=== PATIENT | male | born 2000 | race Caucasian/White ===

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

== ENCOUNTER 2021-09-11 18:59 | Observation (INO) ==
[2021-09-11] MEDS ORDERED: SODIUM CHLORIDE 1,000 ML IV STA ×4 (19:15→20:10)
--- NOTE | 2021-09-11 19:22 | ED.PDOC ---
General ED Provider: Dr. SHARONDA ALEXIS Chief Complaint: Non-specific Complaint Stated Complaint: Pt presents with muscle cramping. 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 Denies any F/C/N/V/CP/AP/SOB. Nothing else makes the sxs better or worse and they are mild in nature. Time Seen by Provider: 09/11/21 19:32 Mode of Arrival: Walk-In Information Source: Patient Primary Care Provider: SHAHIDA BUSTOS MD Nursing and Triage Documentation Reviewed and Agree: Yes Does patient meet sepsis criteria?: No If yes, has appropriate treatment been initiated?: No System Inflammatory Response Syndrome: Not Applicable Sepsis Protocol: For patient's 13 years and over: Temp is 96.8 and below OR 101 and greater Pulse >90 BPM Resp >20/minute Acutely Altered Mental Status Are patient's symptoms suggestive of a new infection, such as: -Pneumonia -Skin, Soft Tissue -Endocarditis -UTI -Bone, Joint Infection -Implantable Device -Acute Abdominal Infection -Wound Infection -Meningitis -Blood Stream Catheter Infection -Unknown Review of Systems Review Of Systems Constitutional: Reports No symptoms Eyes: Reports No symptoms Ears, Nose, Mouth, Throat: Reports No symptoms Respiratory: Reports No symptoms Cardiac: Reports No symptoms GI: Reports No symptoms : Reports No symptoms Musculoskeletal: Reports Muscle pain (and cramping) Skin: Reports No symptoms Neurological: Reports No symptoms Endocrine: Reports No symptoms Hematologic/Lymphatic: Reports No symptoms All Other Systems: Reviewed and Negative [facility] Medical History Anxiety Atrial fibrillation Family history of hypertension Hypertension Moderate anxiety Mood disorder Obesity Panic attack Severe depression Family History Grandfather/Grandmother Diabetes Heart disease Hypertension Grandfather/Grandmother Heart disease Hypertension FATHER Hypertension Social History Smoking and tobacco status: Never smoker Alcohol intake: never Substance use type: does not use Andressa/church: RELIGIOUS Foster care: No Household members: family Marital status: S SINGLE Daycare: no daycare Highest education level completed: 11th grade service: No assisted: No Current occupational status: employed 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 Do you think of yourself as: straight/heterosexual Current gender identity: male Water heater temperature set < 120 degrees: Yes Working smoke detector in home: Yes Fire extinguisher in home: Yes Carbon monoxide detector in home: Yes Physical Exam Physical Exam Appearance: Reports Well-appearing, No pain distress and Well-nourished Ill-appearing: None Pain Distress: None Eyes: Reports ALBA, EOMI and Conjunctiva clear ENT: Reports Not Examined Neck: Supple Respiratory: Reports Airway patent, Breath sounds clear, Breath sounds equal and Respirations nonlabored Cardiovascular: Reports RRR, Pulses normal, No rub and No murmur GI/: Reports Soft, Nontender, No masses, Bowel sounds normal and No Organomegaly Musculoskeletal: Reports Normal strength, ROM intact, No edema, No calf tenderness and Other (mild muscular TTP in legs and arms) Skin: Reports Warm, Dry and Normal color Neurological: Reports Sensation intact, Motor intact, Reflexes intact, Cranial nerves intact, Alert and Oriented Psychiatric: Reports Affect appropriate and Mood appropriate Critical Care Note Critical Care Note Total Critical Care Time (mins): 0 Course Course Hematology/Chemistry: 09/11/21 19:25 09/11/21 19:25 Orders, Labs, Meds: Lab Review 09/11/21 09/11/21 19:25 19:25 WBC 12.18 H RBC 4.84 Hgb 14.0 Hct 40.1 L MCV 82.9 MCH 28.9 MCHC 34.9 RDW Coeff of Vanessa 12.6 Plt Count 398 Immature Gran % (Auto) 0.8 Neut % (Auto) 72.9 Lymph % (Auto) 17.4 [place] % (Auto) 7.8 Eos % (Auto) 0.7 Baso % (Auto) 0.4 Neut # (Auto) 8.9 H Lymph # (Auto) 2.1 [place] # (Auto) 1.0 Eos # (Auto) 0.1 Baso # (Auto) 0.1 Immature Gran # (Auto) 0.1 Sodium 136.4 Potassium 3.49 L Chloride 96.5 L Carbon Dioxide 26.9 Anion Gap 16.49 BUN 34.0 H Creatinine 3.20 H Estimated GFR (MDRD) 25.00 BUN/Creatinine Ratio 10.62 Glucose 111.7 H Calcium 9.63 Magnesium 2.48 H Total Bilirubin 0.97 AST 34.1 ALT 20.0 Alkaline Phosphatase 89.2 Total Creatine Kinase 329.5 H CK-MB (CK-2) 0.811 CK-MB (CK-2) % 0.2400 Total Protein 8.75 H Albumin 4.97 Globulin 3.78 Albumin/Globulin Ratio 1.31 Orders Category Date Time Status ADMIT OBSERVATION [PLACE PATIENT OBSERVATION] .TO ADMISSION 09/11/21 20:07 Active MEDSURG (NON-MONITORED BED) CBC W/ AUTO DIFF DAILY@0600 LAB 09/12/21 06:00 Ordered CBC W/ AUTO DIFF DAILY@0600 LAB 09/13/21 06:00 Ordered CBC W/ AUTO DIFF Stat LAB 09/11/21 19:25 Completed CMP [COMPREHENSIVE METABOLIC PANEL] DAILY@0600 LAB 09/12/21 06:00 Ordered CMP [COMPREHENSIVE METABOLIC PANEL] DAILY@0600 LAB 09/13/21 06:00 Ordered COMPREHENSIVE METABOLIC PANEL Stat LAB 09/11/21 19:25 Completed CREATINE KINASE Stat LAB 09/11/21 19:25 Completed MAGNESIUM Stat LAB 09/11/21 19:25 Completed Sodium Chloride 0.9% [Sodium Chloride] 1,000 ml MEDS 09/11/21 20:07 Active IV 250 mls/hr Sodium Chloride 0.9% [Sodium Chloride] 1,000 ml MEDS 09/11/21 19:15 Active IV BOLUS Sodium Chloride 0.9% [Sodium Chloride] 1,000 ml MEDS 09/11/21 20:02 Active IV BOLUS Sodium Chloride 0.9% [Sodium Chloride] 1,000 ml MEDS 09/11/21 20:10 Active IV BOLUS Medications Generic Name Dose Route Start Last Admin Trade Name Freq PRN Reason Stop Dose Admin Sodium Chloride 1,000 mls @ 1,000 mls/hr 09/11/21 19:15 09/11/21 19:34 Sodium Chloride IV 09/11/21 20:14 1,000 mls/hr BOLUS STA Administration Sodium Chloride 1,000 mls @ 1,000 mls/hr 09/11/21 20:02 Sodium Chloride IV 09/11/21 21:01 BOLUS STA Sodium Chloride 1,000 mls @ 250 mls/hr 09/11/21 20:07 Sodium Chloride IV 09/12/21 00:06 .Q4H STA Sodium Chloride 1,000 mls @ 1,000 mls/hr 09/11/21 20:10 Sodium Chloride IV 09/11/21 21:09 BOLUS STA Vital Signs: Temp Pulse Resp BP Pulse Ox 09/11/21 19:20 85 72/43 L 09/11/21 19:19 74 85/48 L 09/11/21 19:01 96.7 F L 82 20 92/60 98 Discharge Plan Discharge Patient Disposition: PLACED OBSERVATION Discharge Problem: Acute kidney injury, Acute dehydration, Muscle spasm ED Provider: SHARONDA ALEXIS Condition: Stable Physician Progress Note: I have reviewed pt results. CBC shows a WBC of 12.2. Chems show a Cr of 3.2 with a CK of 330. His pressure has been soft in the 90 systolic range. At this point, I suspect the sxs are secondary dehydration. Given his borderline BP and elevated Cr, I think he should be admitted for IV hydration. Pt will be admitted in stable condition.
[2021-09-11 19:32] LABS: BASOPHILS # (AUTO) 0.1 K/uL (0-0.2); BASOPHILS % (AUTO) 0.4 % (0.0-3.0); EOSINOPHILS # (AUTO) 0.1 K/ul (0.0-0.7); EOSINOPHILS % (AUTO) 0.7 % (0.0-7.0); HEMATOCRIT 40.1 % (42.0-52.0); IMMATURE GRANULOCYTE # (AUTO) 0.1 (0.0-1.0); IMMATURE GRANULOCYTE % (AUTO) 0.8 % (0.0-5.0); LYMPHOCYTES # (AUTO) 2.1 K/uL (0.60-3.4); LYMPHOCYTES % (AUTO) 17.4 (10.0-50.0); MEAN CORPUSCULAR HEMOGLOBIN 28.9 pg (27.0-31.0); MEAN CORPUSCULAR HGB CONC 34.9 (31.8-35.4); MEAN CORPUSCULAR VOLUME 82.9 fl (80.0-94.0); MONOCYTES % (AUTO) 7.8 (0-10); NEUTROPHILS # (AUTO) 8.9 K/ul (2.0-6.9); NEUTROPHILS % (AUTO) 72.9 % (42.2-75.2); PLATELET COUNT 398 10^3/uL (140-440); RDW COEFFICIENT OF VARIATION 12.6 % (11.6-14.8); RED BLOOD COUNT 4.84 10^6/ul (4.70-6.10); WHITE BLOOD COUNT 12.18 K/ul (4.2-10.2)
[2021-09-11 19:43] LABS: ALBUMIN 4.97 g/dL (3.5-5.0); ALKALINE PHOSPHATASE 89.2 U/L (38-126); ASPARTATE AMINO TRANSFERASE 34.1 U/L (17-59); BILIRUBIN,TOTAL 0.97 mg/dL (0.2-1.3); CALCIUM 9.63 mg/dL (8.4-10.2); CARBON DIOXIDE 26.9 mmol/L (22-30.0); CHLORIDE 96.5 mmol/L (98-107); CREATINE KINASE 329.5 U/L (55-170); CREATININE 3.2 mg/dL (0.60-1.10); GLUCOSE 111.7 mg/dL (74-106); MAGNESIUM 2.48 mg/dL (1.6-2.3); POTASSIUM 3.49 mmol/L (3.5-5.1); SODIUM 136.4 mmol/L (134.5-145); TOTAL PROTEIN 8.75 g/dL (6.3-8.2)
[2021-09-11 19:58] LABS: CREATINE KINASE MB 0.811 ng/ml (0.0-2.38)
[2021-09-11 22:08] VITALS: BMI 37.3
[2021-09-12] MEDS: SODIUM CHLORIDE 1,000 ML IV SCH ×5 (00:18→18:05)
[2021-09-12 05:01] LABS: BASOPHILS % (AUTO) 0.5 % (0.0-3.0); EOSINOPHILS # (AUTO) 0.1 K/ul (0.0-0.7); EOSINOPHILS % (AUTO) 1.5 % (0.0-7.0); HEMATOCRIT 33.8 % (42.0-52.0); HEMOGLOBIN 11.5 g/dl (14.0-18.0); IMMATURE GRANULOCYTE # (AUTO) 0.1 (0.0-1.0); IMMATURE GRANULOCYTE % (AUTO) 0.8 % (0.0-5.0); LYMPHOCYTES # (AUTO) 2.3 K/uL (0.60-3.4); LYMPHOCYTES % (AUTO) 35.7 (10.0-50.0); MEAN CORPUSCULAR HEMOGLOBIN 28.8 pg (27.0-31.0); MEAN CORPUSCULAR VOLUME 84.7 fl (80.0-94.0); MONOCYTES # (AUTO) 0.6 K/uL (0.4-2.0); MONOCYTES % (AUTO) 9.4 (0-10); NEUTROPHILS # (AUTO) 3.4 K/ul (2.0-6.9); NEUTROPHILS % (AUTO) 52.1 % (42.2-75.2); PLATELET COUNT 281 10^3/uL (140-440); RDW COEFFICIENT OF VARIATION 12.7 % (11.6-14.8); RED BLOOD COUNT 3.99 10^6/ul (4.70-6.10); WHITE BLOOD COUNT 6.49 K/ul (4.2-10.2)
[2021-09-12 05:12] LABS: ALANINE AMINOTRANSFERASE 14.6 U/L (0-50); ALBUMIN 3.48 g/dL (3.5-5.0); ALKALINE PHOSPHATASE 64.8 U/L (38-126); ASPARTATE AMINO TRANSFERASE 26.8 U/L (17-59); BILIRUBIN,TOTAL 0.48 mg/dL (0.2-1.3); BLOOD UREA NITROGEN 28.4 mg/dL (9-20); CALCIUM 8.22 mg/dL (8.4-10.2); CARBON DIOXIDE 24.7 mmol/L (22-30.0); CHLORIDE 106.6 mmol/L (98-107); CREATININE 1.73 mg/dL (0.60-1.10); GLUCOSE 91.9 mg/dL (74-106); POTASSIUM 3.87 mmol/L (3.5-5.1); SODIUM 137.4 mmol/L (134.5-145); TOTAL PROTEIN 6.32 g/dL (6.3-8.2)
--- NOTE | 2021-09-12 10:43 | PCM.PROG ---
Date Seen by Provider: 09/12/21 Time Seen by Provider: 10:00 Subjective: No new complaints. No overnight issues. Denies Nsaid use, black or bloody stools. 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 Thurs he was prescribed guanfacine 1mg for insomnia by his clinician and took it thurs nite. He said his mother gave him one tuesday morning. On 4 meds that treat hypertension which he has a hx of . Deneis any symptoms Objective: Vitals: T=96.9 F, P=72, R=16, BP=91/52, TPE7=099 HEENT: [No icterus, speech normal ] Neck: [no pain, FROM] Lungs: [CTAB no dyspnea ] CVS: [SB no murmur , no chest pain ] Abdomen: [ Non tender , no distention , soft ] Extremities: [FROM ] Neurological: [alert oriented x3 ] Skin: [no rash ] Lab/Tests/Diagnostic Imaging: [ bun down to 28.4/ cret down to 1.7, hgb 11.5 ck 329,Ca 8.22,] Plan: 1. Low hemoglobin - likely from administration of 4 liters of saline. Will check Stool for blood and trend H &H 2. Hx cannibis use- will check tox screen for substances causing adverse reactions with his meds 3. For low ( asymptomatic BP - Orthostatic BP 4.Hx of Afib- EKG 5.TATE - UA 6 Low Serum calcium - corrected for low albumin - 8.6 7. TATE -IV NS @ 150ml/hr 8.Mild elevation CPK - trend 8I&O
[2021-09-12 11:44] LABS: BASOPHILS % (AUTO) 0.6 % (0.0-3.0); EOSINOPHILS # (AUTO) 0.1 K/ul (0.0-0.7); EOSINOPHILS % (AUTO) 1.6 % (0.0-7.0); HEMATOCRIT 34.5 % (42.0-52.0); HEMOGLOBIN 11.5 g/dl (14.0-18.0); IMMATURE GRANULOCYTE % (AUTO) 0.6 % (0.0-5.0); LYMPHOCYTES # (AUTO) 1.4 K/uL (0.60-3.4); LYMPHOCYTES % (AUTO) 26.6 (10.0-50.0); MEAN CORPUSCULAR HEMOGLOBIN 28.4 pg (27.0-31.0); MEAN CORPUSCULAR HGB CONC 33.3 (31.8-35.4); MEAN CORPUSCULAR VOLUME 85.2 fl (80.0-94.0); MONOCYTES # (AUTO) 0.5 K/uL (0.4-2.0); MONOCYTES % (AUTO) 10.5 (0-10); NEUTROPHILS # (AUTO) 3.1 K/ul (2.0-6.9); NEUTROPHILS % (AUTO) 60.1 % (42.2-75.2); PLATELET COUNT 299 10^3/uL (140-440); RDW COEFFICIENT OF VARIATION 12.7 % (11.6-14.8); RED BLOOD COUNT 4.05 10^6/ul (4.70-6.10); WHITE BLOOD COUNT 5.16 K/ul (4.2-10.2)
[2021-09-12 11:45] LABS: ALBUMIN 3.89 g/dL (3.5-5.0); ALKALINE PHOSPHATASE 64.7 U/L (38-126); ASPARTATE AMINO TRANSFERASE 36.3 U/L (17-59); BILIRUBIN,TOTAL 0.62 mg/dL (0.2-1.3); BLOOD UREA NITROGEN 23.5 mg/dL (9-20); CALCIUM 8.56 mg/dL (8.4-10.2); CHLORIDE 108.2 mmol/L (98-107); CREATINE KINASE 306.4 U/L (55-170); CREATININE 1.34 mg/dL (0.60-1.10); GLUCOSE 89.6 mg/dL (74-106); POTASSIUM 3.71 mmol/L (3.5-5.1); SODIUM 138.9 mmol/L (134.5-145); TOTAL PROTEIN 6.79 g/dL (6.3-8.2)
[2021-09-12 12:02] LABS: CREATINE KINASE MB 0.773 ng/ml (0.0-2.38)
[2021-09-12 12:02] LABS: OCCULT BLOOD SAMPLE 1 NEGATIVE (NEGATIVE)
[2021-09-12 12:41] LABS: AMPHETAMINE SCREEN,URINE NEGATIVE (NEGATIVE); BARBITURATE SCREEN,URINE NEGATIVE (NEGATIVE); BENZODIAZEPINES SCREEN,URINE NEGATIVE (NEGATIVE); CANNABINOID SCREEN,URINE NEGATIVE (NEGATIVE); COCAIN SCREEN,URINE NEGATIVE (NEGATIVE); METHADONE URINE SCREEN NEGATIVE (NEGATIVE); METHAMPHETAMINES SCREEN,URINE NEGATIVE (NEGATIVE); OPIATE SCREEN,URINE NEGATIVE (NEGATIVE); OXYCODONE URINE SCREEN NEGATIVE (NEGATIVE); PHENCYCLIDINE SCREEN,URINE NEGATIVE (NEGATIVE); PROPOXYPHENE URINE SCREEN NEGATIVE (NEGATIVE); TRICYCLIC ANTIDEPRESSANTS URIN NEGATIVE (NEGATIVE)
[2021-09-12 12:55] LABS: BILIRUBIN,URINE Negative (NEGATIVE); CLARITY,URINE Clear (CLEAR); COLOR,URINE Yellow (YELLOW); GLUCOSE, URINE (UA) Negative (NEGATIVE); KETONES,URINE Negative (NEGATIVE); LEUKOCYTE ESTERASE ,URINE Negative (NEGATIVE); NITRITE,URINE Negative (NEGATIVE); PH,URINE 5.5 (5-9); PROTEIN,URINE Negative (NEGATIVE); URINE, BLOOD Negative (NEGATIVE); UROBILINOGEN,URINE 0.2 (0.2)
[2021-09-12 15:03] LABS: CREATINE KINASE 288.4 U/L (55-170)
[2021-09-12 15:19] LABS: CREATINE KINASE MB 0.749 ng/ml (0.0-2.38)
[2021-09-13 00:23] LABS: OCCULT BLOOD SAMPLE 2 NO SPECIMEN RECEIVED (NEGATIVE); OCCULT BLOOD SAMPLE 3 NO SPECIMEN RECEIVED (NEGATIVE)
[2021-09-13] MEDS: SODIUM CHLORIDE 1,000 ML IV SCH ×2 (00:37→07:13)
[2021-09-13 05:03] LABS: BASOPHILS % (AUTO) 0.5 % (0.0-3.0); EOSINOPHILS # (AUTO) 0.1 K/ul (0.0-0.7); EOSINOPHILS % (AUTO) 1.7 % (0.0-7.0); HEMATOCRIT 32.5 % (42.0-52.0); IMMATURE GRANULOCYTE % (AUTO) 0.5 % (0.0-5.0); LYMPHOCYTES # (AUTO) 2.4 K/uL (0.60-3.4); LYMPHOCYTES % (AUTO) 39.3 (10.0-50.0); MEAN CORPUSCULAR HEMOGLOBIN 28.6 pg (27.0-31.0); MEAN CORPUSCULAR HGB CONC 33.8 (31.8-35.4); MEAN CORPUSCULAR VOLUME 84.6 fl (80.0-94.0); MONOCYTES # (AUTO) 0.6 K/uL (0.4-2.0); MONOCYTES % (AUTO) 9.1 (0-10); NEUTROPHILS % (AUTO) 48.9 % (42.2-75.2); PLATELET COUNT 284 10^3/uL (140-440); RDW COEFFICIENT OF VARIATION 12.4 % (11.6-14.8); RED BLOOD COUNT 3.84 10^6/ul (4.70-6.10); WHITE BLOOD COUNT 6.03 K/ul (4.2-10.2)
[2021-09-13 05:19] LABS: ALANINE AMINOTRANSFERASE 13.8 U/L (0-50); ALBUMIN 3.33 g/dL (3.5-5.0); ALKALINE PHOSPHATASE 64.4 U/L (38-126); ASPARTATE AMINO TRANSFERASE 24.9 U/L (17-59); BILIRUBIN,TOTAL 0.27 mg/dL (0.2-1.3); BLOOD UREA NITROGEN 11.9 mg/dL (9-20); CALCIUM 8.42 mg/dL (8.4-10.2); CARBON DIOXIDE 25.8 mmol/L (22-30.0); CHLORIDE 109.3 mmol/L (98-107); CREATININE 0.94 mg/dL (0.60-1.10); GLUCOSE 111.7 mg/dL (74-106); POTASSIUM 3.42 mmol/L (3.5-5.1); SODIUM 139.4 mmol/L (134.5-145); TOTAL PROTEIN 6.07 g/dL (6.3-8.2)
[2021-09-13 10:08] VITALS: BP 98/59; TEMP 97
--- NOTE | 2021-09-13 11:02 | PCM.DC ---
Final Diagnosis: dehydration, renal insufficiency Physical Exam Appearance: Well-appearing Ill-appearing: None Pain Distress: None Eyes: Conjunctiva clear ENT: Oropharynx normal Neck: Supple Respiratory: Airway patent Cardiovascular: RRR GI/: Other (nondistended) Musculoskeletal: ROM intact Skin: Normal color Neurological: Alert and Oriented Psychiatric: Affect appropriate Reason for Hospitalization: dehydration Prognosis/Condition at Discharge: good Medications at Discharge: Ambulatory Orders Medication Instructions Recorded amitriptyline 10 mg tablet See Rx Instructions .ROUTE 07/07/21 .COMPLEX #90 tab aspirin 81 mg tablet,delayed See Rx Instructions .ROUTE 07/07/21 release .COMPLEX #30 tab cetirizine 10 mg tablet 10 mg PO QDAY #90 tab 07/07/21 hydrochlorothiazide 25 mg tablet 25 mg PO QAM #90 tab 07/07/21 lisinopril 40 mg tablet 40 mg PO QDAY #90 tab 07/23/21 guanfacine 1 mg tablet,extended 1 mg PO DAILY 09/11/21 release 24 hr metoprolol succinate 50 mg 50 mg PO BID 09/11/21 tablet,extended release 24 hr Lab/Diagnostics: bun (28) and electronic gluer (1.7) have both returned to normal range Education Provided to Patient and Family: rest, oral fluids Follow-ups: see your doctor or Dr Yun Discharge Disposition: Home Hospital Course: pt not dizzy or cramping, labs normalized, pt wants to be discharged Plan: oral fluids, rest, see your doctor
== END 2021-09-13 11:03 | disposition home or self-care (01) ==
LOC: MEDSURG A 18:59 → ED 18:59 → MEDSURG A 21:45
PROVIDERS: ADMIT Emergency Medicine; ATTEND Emergency Medicine Emergency Medical Services
DX: M62.81 Muscle weakness (generalized); Z79.899 Other long term (current) drug therapy; Z74.3 Need for continuous supervision; M62.838 Other muscle spasm; E86.0 Dehydration; R94.4 Abnormal results of kidney function studies; N17.9 Acute kidney failure, unspecified; Z51.81 Encounter for therapeutic drug level monitoring; R42 Dizziness and giddiness; N28.9 Disorder of kidney and ureter, unspecified

== ENCOUNTER 2024-11-22 10:45 | Observation (INO) ==
[2024-11-22 11:13] LABS: IMMATURE GRANULOCYTE # (AUTO) 0.1 (0.0-1.0); IMMATURE GRANULOCYTE % (AUTO) 0.5 % (0.0-5.0); RDW COEFFICIENT OF VARIATION 12.6 % (11.6-14.8)
--- NOTE | 2024-11-22 11:13 | ED.PDOC ---
General HPI ED Provider: Dr. LICO MEDLEY MD Chief Complaint: Chest Pain Stated Complaint: Pt presents with feeling like his heart is beating fast. Started when he woke up this morning around 9am. Reports associated lightheadedness and nausea when he moves around. Feels like he cannot take a deep breath. Denies chest pain. States he had some nausea and sweating yesterday and vomited once, but did not have palpitations yesterday. Pt states he has h/o HTN and afib in past. Takes HCTZ and lisinopril but no blood thinners or rate control meds. Denies alcohol use. Reports daily marijuana use, no other drugs. States he drinks tea and water and denies additional caffeine or stimulants. No recent cough or fever. Time Seen by Provider: 11/22/24 10:46 Mode of Arrival: Walk-In Information Source: Patient Exam Limitations: No limitations Primary Care Provider: SHAHIDA BUSTOS MD Nursing and Triage Documentation Reviewed and Agree: Yes Opioid Naive vs. Tolerant What is Opioid Naive?: *Opioid Naive implies the patient is not already taking opioids or not chronically receiving opioids on a daily basis. *PRN dosing is not "usually" associated with tolerance. *Patients are at higher risk of over-sedation and aspiration. What is Opioid Tolerant?: *Opioid Tolerance implies less than the expected response to an opioid. *Acquired tolerance is defined by the patient taking 60mg of oral morphine daily (or equianalgesic dose of another opioid) for 1 week or more. *Often associated with chronic pain. *May take more than usual dose to achieve desired pain control. Review of Systems Review Of Systems Constitutional: Reports No symptoms PFSH PFS Medical History Dehydration E86.0 - Dehydration (ICD-10) Mood disorder F39 - Unspecified mood [affective] disorder (ICD-10) Moderate anxiety F41.9 - Anxiety disorder, unspecified (ICD-10) Severe depression F32.2 - Major depressive disorder, single episode, severe without psychotic features (ICD-10) Panic attack F41.0 - Panic disorder [episodic paroxysmal anxiety] (ICD-10) Anxiety F41.9 - Anxiety disorder, unspecified (ICD-10) Atrial fibrillation I48.91 - Unspecified atrial fibrillation (ICD-10) Family History Grandfather/Grandmother Diabetes Heart disease Hypertension Grandfather/Grandmother Heart disease Hypertension FATHER Hypertension Social History Smoking and tobacco status: Never smoker Alcohol intake: never Substance use type: does not use Andressa/buddhist: PENTECOSTAL Foster care: No Household members: family Marital status: S SINGLE Daycare: no daycare Highest education level completed: 11th grade service: No residential: No Current occupational status: employed 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 Do you think of yourself as: straight/heterosexual Current gender identity: male Water heater temperature set < 120 degrees: Yes Working smoke detector in home: Yes Fire extinguisher in home: Yes Carbon monoxide detector in home: Yes Physical Exam Physical Exam Appearance: Reports Well-appearing and Well-nourished Ill-appearing: None Pain Distress: None Eyes: Reports Conjunctiva clear ENT: Reports Oropharynx normal Neck: Supple Respiratory: Reports Airway patent, Breath sounds clear, Breath sounds equal and Respirations nonlabored Cardiovascular: Reports Irregular rhythm and Tachycardia GI/: Reports Soft and Nontender Musculoskeletal: Reports Normal strength Skin: Reports Warm and Dry Neurological: Reports Alert and Oriented Psychiatric: Reports Affect appropriate Interpretation EKG Interpretation EKG Interpretation By: ED Physician Time of EKG #1: 10:51 Rate: Tachy Rhythm: Other (afib) Ectopy: None [place]: [place] ST Segment: Normal Re-Evaluation Re-Evaluation Time of Re-Evaluation: 11:57 Status: Improved Additional Comments: Pt was given IV lopressor and rate has improved to 80s-low 90s but he remains in afib. He states he feels a little better with improved rate. Discussed lab and CXR results with him - normal hgb, electrolytes, renal function, TSH. CXR negative. Plan to consult hospitalist for admission for further rate and rhythm control. Physician Notification Case Discussed Physician Notified: Bret Gonzalez hospitalist [employer] Time of Notification: 11:57 Comments: Agrees with admission. Course Course 11/22/24 10:55 11/22/24 10:55 Orders, Labs, Meds: Lab Review 11/22/24 10:55 WBC 9.33 RBC 5.32 Hgb 15.3 Hct 46.1 MCV 86.7 MCH 28.8 MCHC 33.2 RDW Coeff of Vanessa 12.6 Plt Count 360 Immature Gran % (Auto) 0.5 Neut % (Auto) 62.7 Lymph % (Auto) 26.3 [place] % (Auto) 8.5 Eos % (Auto) 1.5 Baso % (Auto) 0.5 Neut # (Auto) 5.9 Lymph # (Auto) 2.5 [place] # (Auto) 0.8 Eos # (Auto) 0.1 Baso # (Auto) 0.1 Immature Gran # (Auto) 0.1 Sodium 140.7 Potassium 3.92 Chloride 101.9 Carbon Dioxide 25.7 Anion Gap 17.02 BUN 15.9 Creatinine 0.80 Estimated GFR (MDRD) 120.00 BUN/Creatinine Ratio 19.87 Glucose 109.7 H Calcium 9.68 Magnesium 1.98 Total Bilirubin 0.59 AST 36.7 ALT 20.5 Alkaline Phosphatase 99.7 Total Protein 8.52 H Albumin 4.60 Globulin 3.92 Albumin/Globulin Ratio 1.17 TSH 2.990 Orders Category Date Time Status EKG-(ED ONLY) Stat CARDIO 11/22/24 10:51 Completed PULSE OX [CONTINUOUS PULSE OX (NURSING)] PULSEOX CARE 11/22/24 11:08 Active Physician Anesthesiologist [ED RAILWAY TRACK PLANT OPERATOR APPLIED] .ONCE EMERGENCY 11/22/24 11:08 Active IV [ED IV/MEDIPORT/POWERPORT] .ONCE EMERGENCY 11/22/24 11:08 Active CBC W/ AUTO DIFF Stat LAB 11/22/24 10:55 Completed CMP [COMPREHENSIVE METABOLIC PANEL] Stat LAB 11/22/24 10:55 Completed DRUG SCREEN (RAPID FOR ED) [DRUG SCREEN, URINE, RAPID] LAB 11/22/24 11:56 Uncollected Stat MAGNESIUM Stat LAB 11/22/24 10:55 Completed TSH [THYROID STIMULATING HORMONE] Stat LAB 11/22/24 10:55 Completed 0.9 % Sodium Chloride [Saline Flush] Meds 11/22/24 11:08 Ordered 1 syr IVF PRN PRN Metoprolol Tartrate [Lopressor] Meds 11/22/24 11:08 Discontinued 5 mg IVP ONCE STA Ondansetron HCl/Pf [Zofran Sdv] Meds 11/22/24 11:08 Discontinued 4 mg IVP ONCE STA Sodium Chloride 0.9% [Sodium Chloride] 500 ml Meds 11/22/24 11:09 Active IV BOLUS CXR [CHEST, 1V AP ONLY] Stat RADS 11/22/24 11:08 Completed Medications Generic Name Dose Route Start Last Admin Trade Name Freq PRN Reason Stop Dose Admin Sodium Chloride 500 mls @ 500 mls/hr 11/22/24 11:09 11/22/24 11:18 Sodium Chloride IV 11/22/24 12:08 500 mls/hr BOLUS ONE Administration Sodium Chloride 1 syr 11/22/24 11:08 0.9% Sodium Chloride 10 Ml Disp.Syrin IVF PRN PRN To flush IV Discontinued Medications Generic Name Dose Route Start Last Admin Trade Name Freq PRN Reason Stop Dose Admin Metoprolol Tartrate 5 mg 11/22/24 11:08 11/22/24 11:18 Metoprolol Tartrate 5 Mg/5 Ml Vial IVP 11/22/24 11:09 5 mg ONCE STA Administration Ondansetron HCl 4 mg 11/22/24 11:08 11/22/24 11:18 Ondansetron Hcl/Pf 4 Mg/2 Ml Sdv IVP 11/22/24 11:09 4 mg ONCE STA Administration Vital Signs: Temp Pulse Resp BP Pulse Ox 11/22/24 10:50 98.2 F 123 H 20 104/84 96 MANJU Risk Score MANJU Risk Score: Risk Score Odds of by 30D 0 0.1 (0.1-0.2) 1 0.3 (0.2-0.3) 2 0.4 (0.3-0.5) 3 0.7 (0.6-0.9) 4 1.2 (1.0-1.5) 5 2.2 (1.9-2.6) 6 3.0 (2.5-3.6) 7 4.8 (3.8-6.1) Discharge Plan Discharge Patient Disposition: PLACED OBSERVATION Discharge Problem: Atrial fibrillation with rapid ventricular response Did you review [place] BIOPHARMACEUTICAL REP for ALL controlled substances?: Not Applicable ED Provider: LICO MEDLEY Condition: Stable
[2024-11-22] MEDS: LOPRESSOR IVP STA (11:18)
[2024-11-22] MEDS: SODIUM CHLORIDE 500 ML IV ONE (11:18)
[2024-11-22] MEDS: ZOFRAN SDV IVP STA (11:18)
[2024-11-22 11:20] LABS: CREATININE 0.8 mg/dL (0.60-1.10)
--- NOTE | 2024-11-22 11:26 | DI ---
EXAM: CHEST FRONTAL VIEW HISTORY: Cough COMPARISON: 01/09/2023 FINDINGS: Heart size and mediastinum remain within normal limits. Lungs are free of infiltrate. No consolidation or pleural fluid. No suspicious pulmonary opacities or nodules. There is no pneumothorax or acute bony finding. IMPRESSION: No acute cardiopulmonary process.
[2024-11-22] MEDS ORDERED: TYLENOL PO PRN (12:01)
[2024-11-22 13:39] LABS: AMPHETAMINE SCREEN,URINE NEGATIVE (NEGATIVE); CANNABINOID SCREEN,URINE POSITIVE (NEGATIVE); COCAIN SCREEN,URINE NEGATIVE (NEGATIVE); METHADONE URINE SCREEN NEGATIVE (NEGATIVE); METHAMPHETAMINES SCREEN,URINE NEGATIVE (NEGATIVE); OXYCODONE URINE SCREEN NEGATIVE (NEGATIVE); TRICYCLIC ANTIDEPRESSANTS URIN NEGATIVE (NEGATIVE)
[2024-11-22 13:41] VITALS: BMI 40.6
[2024-11-22] MEDS: LOPRESSOR PO ONE ×2 (13:45→21:46)
[2024-11-22] MEDS: ZOFRAN SDV IVP PRN (14:20)
--- NOTE | 2024-11-22 14:23 | PCM ---
Date of Service Date Seen by Provider: 11/22/24 Time Seen by Provider: 14:00 Admit Day/Time Admission Date: 11/22/24 Admission Time: 12:00 Reason for Admission Chief Complaint: AFIB W/RVR Hospital Provider Hospital Provider: [place] [facility] [place] Primary Care Physician: SHAHIDA BUSTOS MD History of Present Illness History of Present Illness: 24 yo male with pmh of HTN, anxiety, and afib presented to the ER with complaints of palpitations and dizziness. States his symptoms started last night but had improved up until this morning when he got up to get ready for work. Had symptoms of palpitations, dizziness, and nausea that continued to worsen. Denies any chest pain, sob, fever, or other symptoms. Denies any drug use other than marijuana or use of stimulants and caffeine. Patient states around 5 years ago he had his first episode of Afib and was put on metoprolol. Approx. 2 years ago he was struggling with his mental health and stopped taking his medications. Most recently started seeing a PCP at [facility] and was restarted on lisinopril and HCTZ but nothing to control his heart rate. On arrival to the ER, his HR was found to be 123 with Afib RVR on EKG. He was given 1 dose of lopressor 5 mg IVP and HR has stayed in the 80s - continuing to be in Afib. Admitted to med/surg observation. Case Discussed With Case Discussed With: Patient's case was discussed with the ER Physicians, Dr. Alves. [facility] Medical History Dehydration E86.0 - Dehydration (ICD-10) Mood disorder F39 - Unspecified mood [affective] disorder (ICD-10) Moderate anxiety F41.9 - Anxiety disorder, unspecified (ICD-10) Severe depression F32.2 - Major depressive disorder, single episode, severe without psychotic features (ICD-10) Panic attack F41.0 - Panic disorder [episodic paroxysmal anxiety] (ICD-10) Anxiety F41.9 - Anxiety disorder, unspecified (ICD-10) Atrial fibrillation I48.91 - Unspecified atrial fibrillation (ICD-10) Family History Grandfather/Grandmother Diabetes Heart disease Hypertension Grandfather/Grandmother Heart disease Hypertension FATHER Hypertension CVA (cerebral vascular accident) Atrial fibrillation Social History Smoking and tobacco status: Never smoker Alcohol intake: never Substance use type: does not use and marijuana Andressa/mosque: SABIANIST Foster care: No Household members: family Marital status: S SINGLE Daycare: no daycare Highest education level completed: 11th grade service: No longterm: No Current occupational status: employed 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 Do you think of yourself as: straight/heterosexual Current gender identity: male Water heater temperature set < 120 degrees: Yes Working smoke detector in home: Yes Fire extinguisher in home: Yes Carbon monoxide detector in home: Yes Allergies Allergies Allergy/AdvReac Type Severity Reaction Status Date / Time No Known Allergies Allergy Verified 11/22/24 10:51 Current Medications Home Medications Acetaminophen (Acetaminophen 325 Mg Tablet) 650 mg PO Q4H PRN PRN Reason: Mild Pain Hydrochlorothiazide (Hydrochlorothiazide 25 Mg Tablet) 12.5 mg PO DAILY SOFI Lisinopril (Lisinopril 40 Mg Tablet) 40 mg PO DAILY SOFI Ondansetron HCl (Ondansetron Hcl/Pf 4 Mg/2 Ml Sdv) 4 mg IVP Q6H PRN PRN Reason: Nausea / Vomiting Last Admin: 11/22/24 14:20 Dose: 4 mg Sodium Chloride (0.9% Sodium Chloride 10 Ml Disp.Syrin) 1 syr IVF PRN PRN PRN Reason: To flush IV Last Admin: 11/22/24 14:26 Dose: 1 syr Sodium Chloride (0.9% Sodium Chloride 10 Ml Disp.Syrin) 1 syr IVF Q8HR SOFI ergocalciferol (vitamin D2) 1,250 mcg (50,000 unit) capsule 1,250 mcg PO WEEKLY 11/22/24 [History Confirmed 11/22/24] hydrochlorothiazide 12.5 mg capsule 12.5 mg PO DAILY 11/22/24 [History Confirmed 11/22/24] lisinopril 40 mg tablet 40 mg PO DAILY 11/22/24 [History Confirmed 11/22/24] Opioid Naive vs. Tolerant Does Patient Take Opioids?: No Is Patient Opioid Naive?: Yes What is Opioid Naive?: *Opioid Naive implies the patient is not already taking opioids or not chronically receiving opioids on a daily basis. *PRN dosing is not "usually" associated with tolerance. *Patients are at higher risk of over-sedation and aspiration. Is Patient Opioid Tolerant?: No What is Opioid Tolerant?: *Opioid Tolerance implies less than the expected response to an opioid. *Acquired tolerance is defined by the patient taking 60mg of oral morphine daily (or equianalgesic dose of another opioid) for 1 week or more. *Often associated with chronic pain. *May take more than usual dose to achieve desired pain control. Review of Systems Constitutional: Reports No symptoms; Denies Fever Head: Reports Normocephalic Eyes: Reports No symptoms Ears: Reports No symptoms Nose: Reports No symptoms Mouth: Reports No symptoms Throat: Reports No symptoms Cardiovascular: Reports Palpitations; Denies Chest pain Respiratory: Denies Shortness of air Gastrointestinal: Reports Nausea Genitourinary: Reports No Symptoms Musculoskeletal: Reports No symptoms Endocrine: Reports No symptoms Hematology: Reports No symptoms Immunology: Reports No symptoms Neurological: Reports No symptoms Psychiatric: Reports No symptoms Physical examination Most Recent Vital Signs: Most Recent Vital Signs Temperature 97.4 F L 11/22/24 12:57 Temperature Source Temporal Artery Scan 11/22/24 12:57 Temperature Source Infrared 11/22/24 10:50 Pulse Rate 89 11/22/24 12:57 Respiratory Rate 18 11/22/24 12:57 Blood Pressure 104/84 11/22/24 10:50 Blood Pressure Left Arm 133/74 11/22/24 12:57 Blood Pressure Position Sitting 11/22/24 12:57 O2 Sat by Pulse Oximetry 97 11/22/24 14:00 Oxygen Delivery Method Room Air 11/22/24 14:00 Height 5 ft 7 in 11/22/24 12:57 Weight 117.5 kg 11/22/24 12:57 Telemetry Type Remote Telemetry 11/22/24 13:00 Telemetry Monitoring Started 11/22/24 13:00 Irregular Telemetry Rate (Approximate) 80-90 BPM 11/22/24 13:00 EKG QRS Interval 0.07 11/22/24 13:00 Telemetry Strip Reading Atrial flutter/fib with rate 80's 11/22/24 13:00 Pulse Oximetry Type Remote Telemetry 11/22/24 14:00 Pulse Oximetry Monitoring Started 11/22/24 14:00 Appearance: Positive No Apparent Distress and Alert and Oriented x3 Skin: Positive Warm and Good Turgor HEENT: Positive Normocephalic and PERRLA Neck: Positive Supple and Midline Trachea Chest/Lungs: Positive Symmetrical With Equal Breath Sounds, Clear to Auscultation Bilaterally and Good Air Movement all 4 Lung Coe; Negative Rales, Rhonci or Wheezes Heart: Positive Pulses Normal and Irregular Rhythm; Negative Tachycardia or Bracycardia GI/: Positive Soft, Nontender, Bowel Sounds Normal and No Distention Musculoskeletal: Positive Not Examined Extremities: Positive Intact Peripheral Pulses, Stable Joints Without Laxity and Good ROM in All Joints; Negative Edema Neurological: Positive Sensation Intact, Motor intact, Reflexes Intact, Alert, Oriented and Muscle Strength 5/5 in Upper and Lower Extremities Bilaterally Psychiatric: Positive Oriented x4, Appropriate Mood and Appropriate Affect Labs This Visit Labs This Visit: Labs This Visit 11/22/24 11/22/24 10:55 13:00 WBC 9.33 RBC 5.32 Hgb 15.3 Hct 46.1 MCV 86.7 MCH 28.8 MCHC 33.2 RDW Coeff of Vanessa 12.6 Plt Count 360 Immature Gran % (Auto) 0.5 Neut % (Auto) 62.7 Lymph % (Auto) 26.3 [place] % (Auto) 8.5 Eos % (Auto) 1.5 Baso % (Auto) 0.5 Neut # (Auto) 5.9 Lymph # (Auto) 2.5 [place] # (Auto) 0.8 Eos # (Auto) 0.1 Baso # (Auto) 0.1 Immature Gran # (Auto) 0.1 Sodium 140.7 Potassium 3.92 Chloride 101.9 Carbon Dioxide 25.7 Anion Gap 17.02 BUN 15.9 Creatinine 0.80 Estimated GFR (MDRD) 120.00 BUN/Creatinine Ratio 19.87 Glucose 109.7 H Calcium 9.68 Magnesium 1.98 Total Bilirubin 0.59 AST 36.7 ALT 20.5 Alkaline Phosphatase 99.7 Total Protein 8.52 H Albumin 4.60 Globulin 3.92 Albumin/Globulin Ratio 1.17 TSH 2.990 Urine Opiates Screen Negative Ur Oxycodone Screen Negative Urine Methadone Screen Negative Ur Barbiturates Screen Negative U Tricyclic Antidepress Negative Ur Phencyclidine Scrn Negative Ur Amphetamine Screen Negative U Methamphetamines Scrn Negative U Benzodiazepines Scrn Negative Urine Cocaine Screen Negative U Cannabinoids Screen Positive H Imaging Imaging: EXAM: CHEST FRONTAL VIEW HISTORY: Cough COMPARISON: 01/09/2023 FINDINGS: Heart size and mediastinum remain within normal limits. Lungs are free of infiltrate. No consolidation or pleural fluid. No suspicious pulmonary opacities or nodules. There is no pneumothorax or acute bony finding. IMPRESSION: No acute cardiopulmonary process. EKG Interpretation EKG Interpretation: Afib RVR rate of 102 Review Statement Review Statement: I have independently reviewed and interpreted the labs/EKGs/imaging that were ordered by the ER provider. I have reviewed all outside records that are available currently in our EMR including imaging/notes/labs from previous visits. Plan Plan: 1. Atrial Fibrillation with RVR - RVR resolved at this time, IV dose of lopressor given in ER, metoprolol tartrate 12.5 mg PO given once arrived to the floor, will adjust as needed, telemetry, echo ordered 2. HTN - chronic, continue home medications, may have to adjust with addition of lopressor DVT Prophylaxis: Up ad shoaib Time Spent: Greater than 80 minutes spent with patient, 50% of the time spent with this patient was devoted to counseling and coordination of care. [facility] Plannin minutes spent discussing advance care planning. Disposition: Admit to: Med/Surg Observation Full Code Discussed Plan of Care with Dr. Momo Bullock. Medications Medication Orders: Medications Ordered Category Date Time Status 0.9 % Sodium Chloride [Saline Flush] Meds 11/22/24 11:08 Active 1 syr IVF PRN PRN Acetaminophen [Tylenol] Meds 11/22/24 12:01 Active 650 mg PO Q4H PRN Hydrochlorothiazide Meds 11/23/24 09:00 Active 12.5 mg PO DAILY Lisinopril [Zestril] Meds 11/23/24 09:00 Active 40 mg PO DAILY Ondansetron HCl/Pf [Zofran Sdv] Meds 11/22/24 14:07 Active 4 mg IVP Q6H PRN
[2024-11-22] MEDS: MELATONIN PO PRN (21:54)
[2024-11-23 05:14] LABS: IMMATURE GRANULOCYTE # (AUTO) 0.1 (0.0-1.0); IMMATURE GRANULOCYTE % (AUTO) 0.4 % (0.0-5.0); RDW COEFFICIENT OF VARIATION 12.6 % (11.6-14.8)
[2024-11-23 05:29] VITALS: BP 118/91; PULSE 105; RESP 18; TEMP 97.6
[2024-11-23 05:29] LABS: CREATININE 1.03 mg/dL (0.60-1.10)
[2024-11-23] MEDS: TOPROL XL PO SCH (08:01)
[2024-11-23] MEDS: ZESTRIL PO SCH (08:01)
[2024-11-23] MEDS: HYDROCHLOROTHIAZIDE PO SCH (08:01)
--- NOTE | 2024-11-23 09:02 | DCSUM ---
Admission Date Admission Date: 11/22/24 Discharge Date Discharge Date: 11/23/24 Admission Diagnosis Admission Diagnosis: 1. Atrial Fibrillation with RVR - 2. HTN Discharge Diagnosis Discharge Diagnosis: 1. Atrial Fibrillation with RVR - RVR resolved yesterday, Converted this am, Rate controlled with metoprolol 2. HTN - chronic, stable Hospital Provider Hospital Provider: MABLE LYLE, [facility] [place] Physician Primary Care Physician: DARYL RUSSELL Summary of History and Physical Summary of History and Physical: 24 yo male with pmh of HTN, anxiety, and afib presented to the ER with complaints of palpitations and dizziness. States his symptoms started last night but had improved up until this morning when he got up to get ready for work. Had symptoms of palpitations, dizziness, and nausea that continued to worsen. Denies any chest pain, sob, fever, or other symptoms. Denies any drug use other than marijuana or use of stimulants and caffeine. Patient states around 5 years ago he had his first episode of Afib and was put on metoprolol. Approx. 2 years ago he was struggling with his mental health and stopped taking his medications. Most recently started seeing a PCP at [facility] and was restarted on lisinopril and HCTZ but nothing to control his heart rate. On arrival to the ER, his HR was found to be 123 with Afib RVR on EKG. He was given 1 dose of lopressor 5 mg IVP and HR has stayed in the 80s - continuing to be in Afib. Admitted to med/surg observation. Hospital Course Subjective: Afib RVR remained resolved with metoprolol. Upon arrival to the floor, patient was given 12.5 mg of metoprolol tartrate and again at bedtime. Rate continued to remain controlled. Converted back to normal sinus rhythm around 6 am this morning. Rx sent for metoprolol succinate 25 mg daijayro. Chadvasc score of 1 and does not meet criteria for need of anticoagulation. Discussed signs and symptoms to watch for to return to the ER. Unable to complete echo in house during stay due to insurance requirement of precertification. Order sent for outpatient. Referral sent for Cardiology to follow patient for afib. Appearance: Pleasant, No Apparent Distress and Alert HEENT: MMM, Supple and No JVD CVS: No Murmur and No Rubs Abdomen: Soft, Non-Tender and No Distention Respiratory: No Dyspnea Extremities: No Edema Vital Signs: Most Recent Vital Signs Temperature 97.6 F 11/23/24 05:28 Temperature Source Temporal Artery Scan 11/23/24 05:28 Temperature Source Infrared 11/22/24 10:50 Pulse Rate 105 H 11/23/24 05:28 Respiratory Rate 18 11/23/24 05:28 Blood Pressure 118/91 H 11/23/24 05:28 Blood Pressure Mean 100 11/23/24 05:28 Blood Pressure Left Arm 133/74 11/22/24 12:57 Blood Pressure Location Left Arm 11/23/24 05:28 Blood Pressure Position Supine 11/23/24 05:28 O2 Sat by Pulse Oximetry 95 11/23/24 07:00 Oxygen Delivery Method Room Air 11/23/24 08:00 Height 5 ft 7 in 11/22/24 12:57 Weight 117.5 kg 11/22/24 12:57 Telemetry Type Remote Telemetry 11/23/24 07:00 Telemetry Monitoring Continues 11/23/24 07:00 Irregular Telemetry Rate (Approximate) 80-90 BPM 11/23/24 00:53 Telemetry Heart Rate 66 11/23/24 07:00 Telemetry SPO2 95 11/23/24 07:00 EKG RI Interval 0.17 11/23/24 07:00 EKG QRS Interval 0.08 11/23/24 07:00 Telemetry Strip Reading NSR 11/23/24 07:00 Pulse Oximetry Type Remote Telemetry 11/23/24 07:00 Pulse Oximetry Monitoring Continues 11/23/24 07:00 Imaging: EXAM: CHEST FRONTAL VIEW HISTORY: Cough COMPARISON: 01/09/2023 FINDINGS: Heart size and mediastinum remain within normal limits. Lungs are free of infiltrate. No consolidation or pleural fluid. No suspicious pulmonary opacities or nodules. There is no pneumothorax or acute bony finding. IMPRESSION: No acute cardiopulmonary process. Lab Results Last 24 Hours: 11/23/24 11/22/24 11/22/24 05:08 13:00 10:55 WBC 12.45 H 9.33 RBC 5.62 5.32 Hgb 15.9 15.3 Hct 49.1 46.1 MCV 87.4 86.7 MCH 28.3 28.8 MCHC 32.4 33.2 RDW Coeff of Vanessa 12.6 12.6 Plt Count 364 360 Immature Gran % (Auto) 0.4 0.5 Neut % (Auto) 67.5 62.7 Lymph % (Auto) 21.9 26.3 [place] % (Auto) 8.3 8.5 Eos % (Auto) 1.3 1.5 Baso % (Auto) 0.6 0.5 Neut # (Auto) 8.4 H 5.9 Lymph # (Auto) 2.7 2.5 [place] # (Auto) 1.0 0.8 Eos # (Auto) 0.2 0.1 Baso # (Auto) 0.1 0.1 Immature Gran # (Auto) 0.1 0.1 Sodium 140.8 140.7 Potassium 4.35 3.92 Chloride 99.5 101.9 Carbon Dioxide 29.1 25.7 Anion Gap 16.55 17.02 BUN 15.8 15.9 Creatinine 1.03 0.80 Estimated GFR (MDRD) 89.00 120.00 BUN/Creatinine Ratio 15.33 19.87 Glucose 89.1 109.7 H Calcium 9.97 9.68 Magnesium 1.98 Total Bilirubin 1.16 0.59 AST 28.8 36.7 ALT 21.4 20.5 Alkaline Phosphatase 86.7 99.7 Total Protein 8.53 H 8.52 H Albumin 4.73 4.60 Globulin 3.80 3.92 Albumin/Globulin Ratio 1.24 1.17 TSH 2.990 Urine Opiates Screen Negative Ur Oxycodone Screen Negative Urine Methadone Screen Negative Ur Barbiturates Screen Negative U Tricyclic Antidepress Negative Ur Phencyclidine Scrn Negative Ur Amphetamine Screen Negative U Methamphetamines Scrn Negative U Benzodiazepines Scrn Negative Urine Cocaine Screen Negative U Cannabinoids Screen Positive H Discharge Instructions Discharge Planning: Discharge Planning > 40 minutes If patient is discharged with left ventricular systolic dysfunction: no Discharged with a beta antonio? [] If no, why not? [] Discharged with an wendy/arb? [] If no, why not? [] Discharge Medications: Medications at Discharge (Home Meds & RX) ergocalciferol (vitamin D2) 1,250 mcg (50,000 unit) capsule 1,250 mcg PO WEEKLY 11/22/24 hydrochlorothiazide 12.5 mg capsule 12.5 mg PO DAILY 11/22/24 lisinopril 40 mg tablet 40 mg PO DAILY 11/22/24 metoprolol succinate 25 mg tablet,extended release 24 hr (Toprol XL) 25 mg PO DAILY #30 tabs 11/23/24 ondansetron 4 mg disintegrating tablet 4 mg PO Q6H PRN nausea and vomiting #20 tabs 11/23/24 Discharge Plan Discharge Discharge Orders: Discharge Patient (ONCE); Ordered 11/23/24 Ordered By: ARIEL TOM Activity Restrictions/Additional Instructions: You have been scheduled for an outpatient Echocardiogram of your heart on 11/30/24 at 11am at [facility]. Please arrive 15 minutes early. Can call [phone] if you have any questions or need to change you appointment. You have been referred to [facility]. They will be in contact with y ou to initiate care. If you have any questions or need to speak with them, their contact number is [phone]. Instructions: Metoprolol (By mouth), A-fib (Atrial Fibrillation) (DC), Electronic Cigarettes and Your Health (GEN), Transthoracic Echocardiogram (DC) Care Plan Goals: Problem: Cardiac Dysrhythmia Goal: Adequate cardiac output Instructions: Apply oxygen as ordered Medication as ordered Monitor for any changes in rhythm Notify MD of any changes Patient Disposition: HOME SELF-CARE Prescriptions: New metoprolol succinate [Toprol XL] 25 mg Tablet Extended Release 24 Hr 25 mg PO DAILY Qty: 30 0RF ondansetron 4 mg tablet,disintegrating 4 mg PO Q6H PRN (Reason: nausea and vomiting) Qty: 20 0RF Continued hydrochlorothiazide 12.5 mg capsule 12.5 mg PO DAILY ergocalciferol (vitamin D2) 1,250 mcg (50,000 unit) capsule 1,250 mcg PO WEEKLY lisinopril 40 mg tablet 40 mg PO DAILY Did you review [place] COMPLAINT MANAGER for ALL controlled substances?: No Discussed opioids are addictive and Narcan is available by prescription or from pharmacy.: No Condition: Stable Referrals: DARYL RUSSELL [Primary Care Provider, [facility]] - 12/04/24 2:30 pm
== END 2024-11-23 09:45 | disposition home or self-care (01) ==
LOC: MEDSURG B 10:45 → ED 10:45 → MEDSURG B 12:55
PROVIDERS: ADMIT Hospitalist; ATTEND Nurse Practitioner Family
DX: I48.91 Unspecified atrial fibrillation; I10 Essential (primary) hypertension

== ENCOUNTER 2024-11-28 11:47 | Observation (INO) ==
--- NOTE | 2024-11-28 12:42 | ED.PDOC ---
General HPI ED Provider: Dr. SOMMER PATEL MD Chief Complaint: Nausea/Vomiting Stated Complaint: 24 yo WM with HTN for 10 years, transient AFib in 2020 (had seen [facility] group and placed on aspirin) recently admitted for AFib with RVR given beta-antonio and have been having some nausea/vomiting for 4 days. Vomit 1-2x daily, triggered by the smell or taste of food, no diarrhea. No abdominal pain. He is not eating but tolerating a lot of PO liquid. No BRAY, no chest pain. No cough or SOB. ? attributed to new med (Metoprolol). He doesn't smoke cigarettes or alcohol use but uses THC daily. Time Seen by Provider: 11/28/24 12:20 Mode of Arrival: Walk-In Information Source: Patient Exam Limitations: No limitations Primary Care Provider: DARYL RUSSELL Referred to ED by: Other (self) Seen Within Last 72 Hours for Same Complaint By: In-Patient Facility Nursing and Triage Documentation Reviewed and Agree: Yes Opioid Naive vs. Tolerant Does Patient Take Opioids?: No Is Patient Opioid Naive?: Yes What is Opioid Naive?: *Opioid Naive implies the patient is not already taking opioids or not chronically receiving opioids on a daily basis. *PRN dosing is not "usually" associated with tolerance. *Patients are at higher risk of over-sedation and aspiration. What is Opioid Tolerant?: *Opioid Tolerance implies less than the expected response to an opioid. *Acquired tolerance is defined by the patient taking 60mg of oral morphine daily (or equianalgesic dose of another opioid) for 1 week or more. *Often associated with chronic pain. *May take more than usual dose to achieve desired pain control. Review of Systems Review Of Systems Constitutional: Denies Chills, Diaphoresis or Fever Eyes: Reports No symptoms Ears, Nose, Mouth, Throat: Reports No symptoms and Throat swelling Respiratory: Denies Cough or Shortness of Breath Cardiac: Denies Chest pain or Irregular heart rate GI: Reports Nausea and Vomiting; Denies Abdominal pain, Diarrhea or Difficulty swallowing : Reports No symptoms Musculoskeletal: Reports No symptoms Skin: Reports No symptoms Neurological: Reports No symptoms [facility] Medical History Dehydration E86.0 - Dehydration (ICD-10) Mood disorder F39 - Unspecified mood [affective] disorder (ICD-10) Moderate anxiety F41.9 - Anxiety disorder, unspecified (ICD-10) Severe depression F32.2 - Major depressive disorder, single episode, severe without psychotic features (ICD-10) Panic attack F41.0 - Panic disorder [episodic paroxysmal anxiety] (ICD-10) Anxiety F41.9 - Anxiety disorder, unspecified (ICD-10) Atrial fibrillation I48.91 - Unspecified atrial fibrillation (ICD-10) Family History Grandfather/Grandmother Diabetes Heart disease Hypertension Grandfather/Grandmother Heart disease Hypertension FATHER Hypertension CVA (cerebral vascular accident) Atrial fibrillation Social History Smoking and tobacco status: Never smoker Alcohol intake: never Substance use type: does not use and marijuana Andressa/anglican: AMISH Foster care: No Household members: family Marital status: S SINGLE Daycare: no daycare Highest education level completed: 11th grade service: No shelter: No Current occupational status: employed 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 Do you think of yourself as: straight/heterosexual Current gender identity: male Water heater temperature set < 120 degrees: Yes Working smoke detector in home: Yes Fire extinguisher in home: Yes Carbon monoxide detector in home: Yes Physical Exam Physical Exam Appearance: Reports No pain distress and Well-nourished Ill-appearing: Mild Pain Distress: None Eyes: Reports EOMI ENT: Reports Nose normal and Oropharynx normal Neck: Supple Respiratory: Reports Airway patent, Breath sounds clear, Breath sounds equal and Respirations nonlabored Cardiovascular: Reports RRR, Pulses normal, No rub and No murmur GI/: Reports Nontender, No masses and Bowel sounds normal; Denies Tender Musculoskeletal: Reports Normal strength, ROM intact and No edema Skin: Reports Warm, Dry and Normal color Neurological: Reports Sensation intact and Motor intact Psychiatric: Reports Affect appropriate and Mood appropriate Interpretation EKG Interpretation EKG Interpretation By: ED Physician Time of EKG #1: 12:44 Rate: Normal Rhythm: Sinus Ectopy: None [place]: NL ST Segment: Normal Interpretation: Normal EKG Course Course 11/28/24 12:47 11/28/24 12:47 Orders, Labs, Meds: Lab Review 11/28/24 12:47 WBC 9.97 RBC 5.23 Hgb 14.9 Hct 45.7 MCV 87.4 MCH 28.5 MCHC 32.6 RDW Coeff of Vanessa 12.5 Plt Count 372 Immature Gran % (Auto) 0.6 Neut % (Auto) 74.4 Lymph % (Auto) 14.9 [place] % (Auto) 9.1 Eos % (Auto) 0.4 Baso % (Auto) 0.6 Neut # (Auto) 7.4 H Lymph # (Auto) 1.5 [place] # (Auto) 0.9 Eos # (Auto) 0.0 Baso # (Auto) 0.1 Immature Gran # (Auto) 0.1 Sodium 138.6 Potassium 4.01 Chloride 96.2 L Carbon Dioxide 29.5 Anion Gap 16.91 BUN 47.4 H Creatinine 2.56 H Estimated GFR (MDRD) 31.00 BUN/Creatinine Ratio 18.51 Glucose 95.8 Calcium 9.60 Total Bilirubin 1.18 AST 53.6 ALT 19.2 Alkaline Phosphatase 84.9 Total Protein 8.92 H Albumin 4.72 Globulin 4.20 Albumin/Globulin Ratio 1.12 Lipase 30.0 Orders Category Date Time Status EKG-(ED & IP/OBS ONLY) Stat CARDIO 11/28/24 12:34 Completed NPO REMINDER: IMAGING ONCE CARE 11/28/24 12:35 Active TREATMENT ORDER:NURSING ONCE CARE 11/28/24 13:11 Active Saline Lock [ED IV/MEDIPORT/POWERPORT] .ONCE EMERGENCY 11/28/24 12:34 Active CBC W/ AUTO DIFF Stat LAB 11/28/24 12:47 Completed CMP [COMPREHENSIVE METABOLIC PANEL] Stat LAB 11/28/24 12:47 Completed LIPASE Stat LAB 11/28/24 12:47 Completed 0.9 % Sodium Chloride [Saline Flush] Meds 11/28/24 12:34 Active 1 syr IVF PRN PRN Iohexol [Omnipaque 350 mg/ml 100Ml] Meds 11/28/24 12:46 Discontinued 100 ml IVP ONCE ONE Ondansetron HCl/Pf [Zofran Sdv] Meds 11/28/24 12:57 Discontinued 4 mg IVP ONCE ONE Pantoprazole Sodium [Protonix] Meds 11/28/24 12:34 Discontinued 40 mg IVP ONCE ONE Sodium Chloride 0.9% [Sodium Chloride] 500 ml Meds 11/28/24 12:34 Discontinued IV 250 mls/hr CT ABDOMEN/PELVIS W CONTRAST Stat RADS 11/28/24 12:34 Completed Medications Generic Name Dose Route Start Last Admin Trade Name Freq PRN Reason Stop Dose Admin Sodium Chloride 1 syr 11/28/24 12:34 11/28/24 12:45 0.9% Sodium Chloride 10 Ml Disp.Syrin IVF 1 syr PRN PRN Administration To flush IV Discontinued Medications Generic Name Dose Route Start Last Admin Trade Name Freq PRN Reason Stop Dose Admin Sodium Chloride 500 mls @ 250 mls/hr 11/28/24 12:34 11/28/24 14:05 Sodium Chloride IV 11/28/24 14:33 Infused .Q2H ONE Infusion Iohexol 100 ml 11/28/24 12:46 11/28/24 13:49 Iohexol 350 Mg/Ml 100ml IVP 11/28/24 12:47 100 ml ONCE ONE Administration Ondansetron HCl 4 mg 11/28/24 12:57 11/28/24 13:23 Ondansetron Hcl/Pf 4 Mg/2 Ml Sdv IVP 11/28/24 12:58 4 mg ONCE ONE Administration Pantoprazole Sodium 40 mg 11/28/24 12:34 11/28/24 12:45 Pantoprazole Sodium 40 Mg Vial IVP 11/28/24 12:35 40 mg ONCE ONE Administration Vital Signs: Temp Pulse Resp BP Pulse Ox 11/28/24 11:58 97.3 F L 82 20 134/75 98 Discussed with patient that his CT scan of abdomen and pelvis was not revealing but that he does have TATE and will need admission for IV hydration. He is agreeable. Hospitalist Georgina notified Discharge Plan Discharge Patient Disposition: PLACED OBSERVATION Discharge Problem: Vomiting in adult, Acute kidney injury Did you review [place] PHYSICAL EDUCATION SPECIALIST for ALL controlled substances?: Not Applicable ED Provider: SOMMER PATEL Condition: Fair
[2024-11-28] MEDS: PROTONIX IVP ONE (12:45)
[2024-11-28] MEDS: SODIUM CHLORIDE 500 ML IV ONE (12:45)
[2024-11-28 12:48] LABS: IMMATURE GRANULOCYTE # (AUTO) 0.1 (0.0-1.0); IMMATURE GRANULOCYTE % (AUTO) 0.6 % (0.0-5.0); RDW COEFFICIENT OF VARIATION 12.5 % (11.6-14.8)
[2024-11-28 13:00] LABS: CREATININE 2.56 mg/dL (0.60-1.10)
[2024-11-28] MEDS: ZOFRAN SDV IVP ONE (13:23)
[2024-11-28] MEDS: OMNIPAQUE 350 MG/ML 100ML IVP ONE (13:49)
--- NOTE | 2024-11-28 14:19 | CT ---
EXAM: CT ABDOMEN AND PELVIS WITH CONTRAST HISTORY: Persistent vomiting. TECHNIQUE: CT acquisition of the abdomen and pelvis from the lower thorax through the pelvis following IV contrast administration. 2-D coronal and sagittal reformatted images were obtained from the axial source images. CT Dose Reduction Techniques Performed: Yes. COMPARISON: 03/16/2018 FINDINGS: Visualized portions of the lower chest included in this examination of the abdomen and pelvis show no significant abnormalities. No visible liver mass. No biliary tree dilatation. The gallbladder is present. Gallstones can not be excluded by CT. The pancreas and adrenal glands have a normal appearance. 1.1 cm subcapsular low density of the spleen posterior medially, not visible in the prior study without IV contrast. Might be new. Regardless, of doubtful clinical significance, probably either a cyst or hemangioma. The kidneys enhance symmetrically. No ureteral stones or hydronephrosis. The bowel has a normal appearance. Normal appendix. Tiny fat only containing umbilical hernia, stable. No free air or free fluid. No enlarged lymph nodes are identified. Bone window images show no significant lytic or sclerotic bone lesions. IMPRESSION: 1. No acute findings in the abdomen or pelvis. All CT scans are performed using dose optimization techniques as appropriate to the performed exam and include at least one of the following: Automated exposure control, adjustment of the mA and/or kV according to size, and the use of iterative reconstruction technique.
--- NOTE | 2024-11-28 15:03 | PCM ---
Date of Service Date Seen by Provider: 11/28/24 Time Seen by Provider: 14:30 Admit Day/Time Admission Date: 11/28/24 Admission Time: 14:42 Reason for Admission Chief Complaint: ACUTE KIDNEY INJURY/INTRACTABLE VOMITING Hospital Provider Hospital Provider[facility] Iz[facility] Physician Primary Care Physician: DARYL RUSSELL History of Present Illness History of Present Illness: Patient is a 24 year old male with pmhx of a fib and hypertension who presents for vomiting. He states he's been vomiting on and off for about a week. Was hospitalized last week for a fib rvr and restarted on metoprolol, but he states the n/v started prior to starting the metoprolol. He has continued to have n/v and unable to keep anything down. Denies abd pain, fever, diarrhea. He does admit to smoking marijuana. Still has a gall bladder. Denies worsened symptoms with fatty foods. No hx of acid reflux/pud. No nsaid or alcohol use. In ER was found to have an TATE and required IV antiemetics. Admitted to [facility]. Case Discussed With Case Discussed With: Patient's case was discussed with the ER Physicians, Dr. Cottrell. [facility] Medical History Dehydration E86.0 - Dehydration (ICD-10) Mood disorder F39 - Unspecified mood [affective] disorder (ICD-10) Moderate anxiety F41.9 - Anxiety disorder, unspecified (ICD-10) Severe depression F32.2 - Major depressive disorder, single episode, severe without psychotic features (ICD-10) Panic attack F41.0 - Panic disorder [episodic paroxysmal anxiety] (ICD-10) Anxiety F41.9 - Anxiety disorder, unspecified (ICD-10) Atrial fibrillation I48.91 - Unspecified atrial fibrillation (ICD-10) Family History Grandfather/Grandmother Diabetes Heart disease Hypertension Grandfather/Grandmother Heart disease Hypertension FATHER Hypertension CVA (cerebral vascular accident) Atrial fibrillation Social History Smoking and tobacco status: Never smoker Alcohol intake: never Substance use type: does not use and marijuana Andressa/mu-ism: HOLINESS Foster care: No Household members: family Marital status: S SINGLE Daycare: no daycare Highest education level completed: 11th grade service: No prison: No Current occupational status: employed 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 Do you think of yourself as: straight/heterosexual Current gender identity: male Water heater temperature set < 120 degrees: Yes Working smoke detector in home: Yes Fire extinguisher in home: Yes Carbon monoxide detector in home: Yes Allergies Allergies Allergy/AdvReac Type Severity Reaction Status Date / Time No Known Allergies Allergy Verified 11/28/24 12:01 Current Medications Home Medications Acetaminophen (Acetaminophen 325 Mg Tablet) 650 mg PO Q4H PRN PRN Reason: Mild Pain Last Admin: 11/29/24 08:22 Dose: 650 mg Al Hydroxide/Mg Hydroxide (Mag Hydrox/Al Hydrox/Simeth 30 Ml Cup) 30 ml PO QID PRN PRN Reason: gerd Last Admin: 11/28/24 18:07 Dose: 30 ml Famotidine (Famotidine Inj 20 Mg/2 Ml Vial) 20 mg IVP Q12HR [facility] Last Admin: 11/29/24 08:22 Dose: 20 mg Lactated Ringer's (Lactated Ringers) 1,000 mls @ 200 mls/hr IV .Q5H [facility] Last Admin: 11/29/24 10:59 Dose: Not Given Lisinopril (Lisinopril 40 Mg Tablet) 40 mg PO DAILY [facility] Last Admin: 11/29/24 08:23 Dose: 40 mg Metoclopramide HCl (Metoclopramide Hcl 10 Mg/2 Ml) 5 mg IVP Q6H PRN PRN Reason: Nausea / Vomiting Last Admin: 11/28/24 19:20 Dose: 5 mg Metoprolol Succinate (Metoprolol Succinate 25 Mg Tab.Er.24h) 25 mg PO DAILY [facility] Last Admin: 11/29/24 08:23 Dose: 25 mg Ondansetron HCl (Ondansetron Hcl/Pf 4 Mg/2 Ml Sdv) 4 mg IVP Q6H PRN PRN Reason: Nausea / Vomiting Last Admin: 11/28/24 18:24 Dose: 4 mg Pantoprazole Sodium (Pantoprazole Sodium 40 Mg Vial) 40 mg IVP DAILY [facility] Last Admin: 11/29/24 08:22 Dose: 40 mg Promethazine HCl (Promethazine Inj 25 Mg/Ml) 25 mg IM Q6HR PRN PRN Reason: nausea Last Admin: 11/28/24 21:22 Dose: 25 mg Sodium Chloride (0.9% Sodium Chloride 10 Ml Disp.Syrin) 1 syr IVF PRN PRN PRN Reason: To flush IV Last Admin: 11/28/24 12:45 Dose: 1 syr ergocalciferol (vitamin D2) 1,250 mcg (50,000 unit) capsule 1,250 mcg PO WEEKLY 11/22/24 [History Confirmed 11/28/24] hydrochlorothiazide 12.5 mg capsule 12.5 mg PO DAILY 11/22/24 [History Confirmed 11/28/24] lisinopril 40 mg tablet 40 mg PO DAILY 11/22/24 [History Confirmed 11/28/24] metoprolol succinate 25 mg tablet,extended release 24 hr (Toprol XL) 25 mg PO DAILY #30 tabs 11/23/24 [Rx Confirmed 11/28/24] ondansetron 4 mg disintegrating tablet 4 mg PO Q6H PRN nausea and vomiting #20 tabs 11/23/24 [Rx Confirmed 11/28/24] Opioid Naive vs. Tolerant Does Patient Take Opioids?: No Is Patient Opioid Naive?: Yes What is Opioid Naive?: *Opioid Naive implies the patient is not already taking opioids or not chronically receiving opioids on a daily basis. *PRN dosing is not "usually" associated with tolerance. *Patients are at higher risk of over-sedation and aspiration. Is Patient Opioid Tolerant?: No What is Opioid Tolerant?: *Opioid Tolerance implies less than the expected response to an opioid. *Acquired tolerance is defined by the patient taking 60mg of oral morphine daily (or equianalgesic dose of another opioid) for 1 week or more. *Often associated with chronic pain. *May take more than usual dose to achieve desired pain control. Review of Systems Constitutional: Denies Fever Head: Reports Normocephalic and Atraumatic Cardiovascular: Denies Chest pain, Chest Pressure, Edema or Palpitations Respiratory: Denies Cough or Shortness of air Gastrointestinal: Reports Nausea and Vomiting; Denies Diarrhea, Vomit Coffee Ground Material, Heartburn, Reflux, Black Tarry Stools, Abdominal pain, Melena o r Dysphagia Genitourinary: Denies Dysuria or Hematuria Neurological: Denies Headache, Dizziness or Syncope Physical examination Most Recent Vital Signs: Most Recent Vital Signs Temperature 97.3 F L 11/28/24 11:58 Temperature Source Temporal Artery Scan 11/28/24 11:58 Pulse Rate 82 11/28/24 11:58 Respiratory Rate 20 11/28/24 11:58 Blood Pressure 134/75 11/28/24 11:58 O2 Sat by Pulse Oximetry 98 11/28/24 11:58 Height 5 ft 7 in 11/28/24 11:58 Weight 114.2 kg 11/28/24 11:58 Telemetry Heart Rate 66 11/23/24 07:00 Telemetry SPO2 95 11/23/24 07:00 Appearance: Positive Well-appearing, Well-nourished, No Apparent Distress and Alert and Oriented x3 Skin: Positive [place], Warm and Good Turgor HEENT: Positive Normocephalic and Atraumatic; Negative Oral Mucous Moist Neck: Positive Supple and Midline Trachea Chest/Lungs: Positive Clear to Auscultation Bilaterally, Rales, Rhonci and Wheezes Heart: Positive RRR GI/: Positive Soft, Nontender, Bowel Sounds Normal and No Distention Extremities: Negative Edema Neurological: Positive Cranial Nerves Intact, Alert, Oriented and Muscle Strength 5/5 in Upper and Lower Extremities Bilaterally Psychiatric: Positive Oriented x4, Appropriate Mood, Appropriate Affect and Intact Memory Labs This Visit Labs This Visit: Labs This Visit 11/28/24 12:47 WBC 9.97 RBC 5.23 Hgb 14.9 Hct 45.7 MCV 87.4 MCH 28.5 MCHC 32.6 RDW Coeff of Vanessa 12.5 Plt Count 372 Immature Gran % (Auto) 0.6 Neut % (Auto) 74.4 Lymph % (Auto) 14.9 [place] % (Auto) 9.1 Eos % (Auto) 0.4 Baso % (Auto) 0.6 Neut # (Auto) 7.4 H Lymph # (Auto) 1.5 [place] # (Auto) 0.9 Eos # (Auto) 0.0 Baso # (Auto) 0.1 Immature Gran # (Auto) 0.1 Sodium 138.6 Potassium 4.01 Chloride 96.2 L Carbon Dioxide 29.5 Anion Gap 16.91 BUN 47.4 H Creatinine 2.56 H Estimated GFR (MDRD) 31.00 BUN/Creatinine Ratio 18.51 Glucose 95.8 Calcium 9.60 Total Bilirubin 1.18 AST 53.6 ALT 19.2 Alkaline Phosphatase 84.9 Total Protein 8.92 H Albumin 4.72 Globulin 4.20 Albumin/Globulin Ratio 1.12 Lipase 30.0 Imaging Imaging: EXAM: CT ABDOMEN AND PELVIS WITH CONTRAST HISTORY: Persistent vomiting. TECHNIQUE: CT acquisition of the abdomen and pelvis from the lower thorax through the pelvis following IV contrast administration. 2-D coronal and sagittal reformatted images were obtained from the axial source images. CT Dose Reduction Techniques Performed: Yes. COMPARISON: 03/16/2018 FINDINGS: Visualized portions of the lower chest included in this examination of the abdomen and pelvis show no significant abnormalities. No visible liver mass. No biliary tree dilatation. The gallbladder is present. Gallstones can not be excluded by CT. The pancreas and adrenal glands have a normal appearance. 1.1 cm subcapsular low density of the spleen posterior medially, not visible in the prior study without IV contrast. Might be new. Regardless, of doubtful clinical significance, probably either a cyst or hemangioma. The kidneys enhance symmetrically. No ureteral stones or hydronephrosis. The bowel has a normal appearance. Normal appendix. Tiny fat only containing umbilical hernia, stable. No free air or free fluid. No enlarged lymph nodes are identified. Bone window images show no significant lytic or sclerotic bone lesions. IMPRESSION: 1. No acute findings in the abdomen or pelvis. Review Statement Review Statement: I have independently reviewed and interpreted the labs/EKGs/imaging that were ordered by the ER provider. I have reviewed all outside records that are available currently in our EMR including imaging/notes/labs from previous visits. Plan Plan: 1. TATE, stage I - Baseline Cr 1, Cr 2.56 today. LR at 125 ml/hr. 2. Intractable n/v - CT a/p negative. Cyclic vomiting on differential. Less likely gallbladder given no associated symptoms. Will do prn zofran, reglan, and protonix/pepcid. Mylanta prn. 3. A fib - Cont home metoprolol, has outpatient echo scheduled 4. Hypertension - Hold hctz DVT Prophylaxis: Ambulation Time Spent: Greater than 80 minutes spent with patient, 50% of the time spent with this patient was devoted to counseling and coordination of care. Advanced [facility] Plannin minutes spent discussing advance care planning. Smoking Cessation: 3minutes spent discussing smoking cessation. Admit to: Obs Discussed Plan of Care with Dr. Rolf Bullock. Medications Medication Orders: Medications Ordered Category Date Time Status 0.9 % Sodium Chloride [Saline Flush] Meds 11/28/24 12:34 Active 1 syr IVF PRN PRN Acetaminophen [Tylenol] Meds 11/28/24 15:01 Ordered 650 mg PO Q4H PRN Famotidine Inj [Pepcid] Meds 11/28/24 21:00 Ordered 20 mg IVP Q12HR Lisinopril [Zestril] Meds 11/29/24 09:00 Ordered 40 mg PO DAILY Mag Hydrox/Al Hydrox/Simeth [Mylanta Susp] Meds 11/28/24 15:01 Ordered 30 ml PO QID PRN Metoprolol Succinate [Toprol Xl] Meds 11/29/24 09:00 Ordered 25 mg PO DAILY Ondansetron HCl/Pf [Zofran Sdv] Meds 11/28/24 15:01 Ordered 4 mg IVP Q6H PRN Pantoprazole Sodium [Protonix] Meds 11/29/24 09:00 Ordered 40 mg IVP DAILY Ringers Lactated Solution [Lactated Ringers] 1,000 ml Meds 11/28/24 15:30 Ordered IV 125 mls/hr
[2024-11-28 15:51] VITALS: BMI 38.8
[2024-11-28] MEDS: LACTATED RINGERS 1,000 ML IV SCH (16:29)
[2024-11-28] MEDS: TYLENOL PO PRN (18:07)
[2024-11-28] MEDS: MYLANTA SUSP PO PRN (18:07)
[2024-11-28] MEDS: ZOFRAN SDV IVP PRN (18:24)
[2024-11-28] MEDS: REGLAN IVP PRN (19:20)
[2024-11-28] MEDS: PEPCID IVP SCH (20:08)
[2024-11-28] MEDS: PHENERGAN 25 MG/ML VIAL IM PRN (21:22)
[2024-11-29 05:50] LABS: IMMATURE GRANULOCYTE # (AUTO) 0.0 (0.0-1.0); IMMATURE GRANULOCYTE % (AUTO) 0.2 % (0.0-5.0); RDW COEFFICIENT OF VARIATION 12.3 % (11.6-14.8)
[2024-11-29 06:05] LABS: CREATININE 2.0 mg/dL (0.60-1.10)
[2024-11-29] MEDS: PROTONIX IVP SCH (08:22)
[2024-11-29] MEDS: TOPROL XL PO SCH (08:23)
[2024-11-29] MEDS: ZESTRIL PO SCH (08:23)
[2024-11-29] MEDS: LACTATED RINGERS 1,000 ML IV SCH ×2 (10:59→19:32)
[2024-11-29 16:33] LABS: CREATININE 1.95 mg/dL (0.60-1.10)
--- NOTE | 2024-11-29 16:43 | PCM.PROG ---
Date/Time Seen Date Seen by Provider: 11/29/24 Time Seen by Provider: 09:00 Provider Provider: IZABEL GARCIA [facility], [facility] Chief Complaint Chief Complaint: ACUTE KIDNEY INJURY/INTRACTABLE VOMITING Subjective Subjective: Patient received antiemetics yesterday evening, but not overnight. Has had some jello this morning. Feels ok so far. Cr not at baseline. Objective Appearance: Positive No Apparent Distress and Alert and Oriented x3 Chest/Lungs: Positive Clear to Auscultation Bilaterally; Negative Rales, Rhonci or Wheezes Heart: Positive RRR GI/: Positive Soft, Nontender, Bowel Sounds Normal and No Distention Neurological: Positive Cranial Nerves Intact, Alert, Oriented and Muscle Strength 5/5 in Upper and Lower Extremities Bilaterally Vital Signs Vital Signs: Vital Signs: Last 24 Hours 11/28/24 16:42 11/28/24 18:00 11/28/24 18:00 Temperature 98.4 F Temperature Source Temporal Artery Scan Pulse Rate 73 Respiratory Rate 14 Blood Pressure 134/90 Blood Pressure Mean 104 Blood Pressure Location Left Arm Blood Pressure Position O2 Sat by Pulse Oximetry 96 Oxygen Delivery Method Room Air Room Air Room Air 11/28/24 19:00 11/28/24 19:33 11/28/24 20:00 Temperature Temperature Source Pulse Rate Respiratory Rate Blood Pressure Blood Pressure Mean Blood Pressure Location Blood Pressure Position O2 Sat by Pulse Oximetry Oxygen Delivery Method Room Air Room Air Room Air 11/28/24 21:00 11/28/24 21:39 11/28/24 22:00 Temperature 98.3 F Temperature Source Temporal Artery Scan Pulse Rate 58 L Respiratory Rate 16 Blood Pressure 131/83 Blood Pressure Mean 99 Blood Pressure Location Right Arm Blood Pressure Position Supine O2 Sat by Pulse Oximetry 95 Oxygen Delivery Method Room Air Room Air Room Air 11/28/24 22:51 11/29/24 00:00 11/29/24 01:00 Temperature Temperature Source Pulse Rate Respiratory Rate Blood Pressure Blood Pressure Mean Blood Pressure Location Blood Pressure Position O2 Sat by Pulse Oximetry Oxygen Delivery Method Room Air Room Air Room Air 11/29/24 02:00 11/29/24 03:00 11/29/24 04:00 Temperature Temperature Source Pulse Rate Respiratory Rate Blood Pressure Blood Pressure Mean Blood Pressure Location Blood Pressure Position O2 Sat by Pulse Oximetry Oxygen Delivery Method Room Air Room Air Room Air 11/29/24 05:00 11/29/24 05:46 11/29/24 05:54 Temperature 96.6 F L Temperature Source Temporal Artery Scan Pulse Rate 69 Respiratory Rate 18 Blood Pressure 116/73 Blood Pressure Mean 87 Blood Pressure Location Right Arm Blood Pressure Position Supine O2 Sat by Pulse Oximetry 98 Oxygen Delivery Method Room Air Room Air Room Air 11/29/24 07:00 11/29/24 08:00 11/29/24 08:00 Temperature Temperature Source Pulse Rate Respiratory Rate 18 Blood Pressure Blood Pressure Mean Blood Pressure Location Blood Pressure Position O2 Sat by Pulse Oximetry Oxygen Delivery Method Room Air Room Air Room Air 11/29/24 09:00 11/29/24 09:58 11/29/24 10:00 Temperature 97.9 F Temperature Source Temporal Artery Scan Pulse Rate 60 Respiratory Rate 14 Blood Pressure 131/77 Blood Pressure Mean 95 Blood Pressure Location Right Arm Blood Pressure Position O2 Sat by Pulse Oximetry 97 Oxygen Delivery Method Room Air Room Air Room Air 11/29/24 10:54 11/29/24 12:00 11/29/24 13:00 Temperature Temperature Source Pulse Rate Respiratory Rate Blood Pressure Blood Pressure Mean Blood Pressure Location Blood Pressure Position O2 Sat by Pulse Oximetry Oxygen Delivery Method Room Air Room Air Room Air 11/29/24 14:00 11/29/24 14:00 11/29/24 15:00 Temperature 97.6 F Temperature Source Temporal Artery Scan Pulse Rate 79 Respiratory Rate 16 Blood Pressure 122/73 Blood Pressure Mean 89 Blood Pressure Location Left Arm Blood Pressure Position O2 Sat by Pulse Oximetry 97 Oxygen Delivery Method Room Air Room Air Room Air 11/29/24 16:00 Temperature Temperature Source Pulse Rate Respiratory Rate Blood Pressure Blood Pressure Mean Blood Pressure Location Blood Pressure Position O2 Sat by Pulse Oximetry Oxygen Delivery Method Room Air Lab Results Lab Results: Lab Results: Last 24 Hours 11/29/24 11/29/24 16:05 05:13 WBC 9.22 RBC 4.76 Hgb 13.6 L Hct 41.9 L MCV 88.0 MCH 28.6 MCHC 32.5 RDW Coeff of Vanessa 12.3 Plt Count 329 Immature Gran % (Auto) 0.2 Neut % (Auto) 61.2 Lymph % (Auto) 25.3 [place] % (Auto) 11.2 H Eos % (Auto) 1.4 Baso % (Auto) 0.7 Neut # (Auto) 5.7 Lymph # (Auto) 2.3 [place] # (Auto) 1.0 Eos # (Auto) 0.1 Baso # (Auto) 0.1 Immature Gran # (Auto) 0.0 Sodium 138.2 137.1 Potassium 3.90 4.03 Chloride 96.5 L 98.5 Carbon Dioxide 33.7 H D 26.5 Anion Gap 11.90 16.13 BUN 29.1 H 38.4 H Creatinine 1.95 H 2.00 H D Estimated GFR (MDRD) 43.00 42.00 BUN/Creatinine Ratio 14.92 19.20 Glucose 87.1 74.8 Calcium 9.48 9.32 Total Bilirubin 1.37 H AST 26.0 D ALT 16.4 Alkaline Phosphatase 72.0 Total Protein 7.41 Albumin 4.17 Globulin 3.24 Albumin/Globulin Ratio 1.28 Additional Comments Additional Comments: I have independently reviewed and interpreted the labs/EKGs/imaging ordered during this hospital stay. I have reviewed outside records that are available in our EMR that pertain to medical stay including imaging/notes/labs from previous visits. Active Medications Active Medications: Medications Generic Name Dose Route Start Last Admin Trade Name Freq PRN Reason Stop Dose Admin Acetaminophen 650 mg 11/28/24 15:01 11/29/24 08:22 Acetaminophen 325 Mg Tablet PO 650 mg Q4H PRN Administration Mild Pain Al Hydroxide/Mg Hydroxide 30 ml 11/28/24 15:01 11/28/24 18:07 Mag Hydrox/Al Hydrox/Simeth 30 Ml Cup PO 30 ml QID PRN Administration gerd Famotidine 20 mg 11/28/24 21:00 11/29/24 08:22 Famotidine Inj 20 Mg/2 Ml Vial IVP 20 mg Q12HR SOFI Administration Lactated Ringer's 1,000 mls @ 200 mls/hr 11/29/24 10:27 11/29/24 14:10 Lactated Ringers IV 200 mls/hr .Q5H SOFI Administration Lisinopril 40 mg 11/29/24 09:00 11/29/24 08:23 Lisinopril 40 Mg Tablet PO 40 mg DAILY SOFI Administration Metoclopramide HCl 5 mg 11/28/24 18:53 11/28/24 19:20 Metoclopramide Hcl 10 Mg/2 Ml IVP 5 mg Q6H PRN Administration Nausea / Vomiting Metoprolol Succinate 25 mg 11/29/24 09:00 11/29/24 08:23 Metoprolol Succinate 25 Mg Tab.Er.24h PO 25 mg DAILY SOFI Administration Ondansetron HCl 4 mg 11/28/24 15:01 11/28/24 18:24 Ondansetron Hcl/Pf 4 Mg/2 Ml Sdv IVP 4 mg Q6H PRN Administration Nausea / Vomiting Pantoprazole Sodium 40 mg 11/29/24 09:00 11/29/24 08:22 Pantoprazole Sodium 40 Mg Vial IVP 40 mg DAILY SOFI Administration Promethazine HCl 25 mg 11/28/24 20:38 11/28/24 21:22 Promethazine Inj 25 Mg/Ml IM 25 mg Q6HR PRN Administration nausea Sodium Chloride 1 syr 11/28/24 12:34 11/28/24 12:45 0.9% Sodium Chloride 10 Ml Disp.Syrin IVF 1 syr PRN PRN Administration To flush IV Plan Plan: 1. TATE, stage I - Baseline Cr 1, Cr 2.00 today, not yet at baseline. Continue LR 2. Intractable n/v - Improved. CT a/p negative. Cyclic vomiting on differential. Less likely gallbladder given no associated symptoms. Will do prn zofran, reglan, and protonix/pepcid. Mylanta prn. 3. A fib - Cont home metoprolol, has outpatient echo scheduled 4. Hypertension - Hold hctz Dispo: Cr not yet at baseline, cont fluids, poss dc tomorrow Review Statement Review Statement: I have personally discussed and reviewed the patient's visit/currently labs/imaging/decision making with Dr. Bullock, my supervising attending. Greater that 50 minutes spent with patient, 50% of the time spent with this patient was devoted to counseling and coordination of care.
[2024-11-30 05:23] LABS: IMMATURE GRANULOCYTE # (AUTO) 0.0 (0.0-1.0); IMMATURE GRANULOCYTE % (AUTO) 0.4 % (0.0-5.0); RDW COEFFICIENT OF VARIATION 11.9 % (11.6-14.8)
[2024-11-30 05:39] LABS: CREATININE 1.7 mg/dL (0.60-1.10)
[2024-11-30 05:54] VITALS: BP 109/69; PULSE 66; RESP 20; TEMP 97.9
--- NOTE | 2024-11-30 08:47 | DCSUM ---
Admission Date Admission Date: 11/28/24 Discharge Date Discharge Date: 11/30/24 Admission Diagnosis Admission Diagnosis: 1. TATE, stage I 2. Intractable n/v Discharge Diagnosis Discharge Diagnosis: 1. TATE, stage I - improved 2. Intractable n/v - resolved 3. A fib 4. Hypertension Hospital Provider Hospital Provider: IZABEL GARCIA PA-C, [facility] Primary Care Physician Primary Care Physician: DARYL RUSSELL Summary of History and Physical Summary of History and Physical: Patient is a 24 year old male with pmhx of a fib and hypertension who presents for vomiting. He states he's been vomiting on and off for about a week. Was hospitalized last week for a fib rvr and restarted on metoprolol, but he states the n/v started prior to starting the metoprolol. He has continued to have n/v and unable to keep anything down. Denies abd pain, fever, diarrhea. He does admit to smoking marijuana. Still has a gall bladder. Denies worsened symptoms with fatty foods. No hx of acid reflux/pud. No nsaid or alcohol use. In ER was found to have an TATE and required IV antiemetics. Admitted to [facility]. Hospital Course Subjective: Patient was treated with fluids and antiemetics. He has not had any vomiting since he was first admitted. On 11/29 his creatinine had improved from 2.56 down to 2.0. Patient was requesting to go home. Discussed that he was not near his baseline yet and encouraged him to stay another day. We discussed repeating labs in the evening to see if he was closer to baseline to then go home. Repeat BMP in the evening showed creatinine had only improved to 1.9. He was reluctantly agreeable to stay another night. Today creatinine is 1.7. Discussed with him that it still not quite at baseline. He has not had any further vomiting and is able to keep fluids down, has also tolerated a PO diet. We discussed that it is expected to improve over the next couple days if he is able to push fluids. He would prefer to try to do this at home. He also has an outpatient echo scheduled today. He already has Zofran at home, will send in Phenergan for him as a backup plan. Discussed not to drive with it as it can cause him to be drowsy. Also recommended to continue Pepcid and omeprazole for 2 weeks to see if this helps with stomach irritation. Patient is agreeable to plan of care. Red flags and when to return discussed. F/u with pcp, would recommend repeat bmp. Appearance: Pleasant, No Apparent Distress and Alert HEENT: MMM CVS: No Murmur and Other (RRR) Abdomen: Soft, Non-Tender and No Distention Respiratory: No Accessory Muscle Use Extremities: No Edema Vital Signs: Most Recent Vital Signs Temperature 97.9 F 11/30/24 05:53 Temperature Source Temporal Artery Scan 11/30/24 05:53 Temperature Source Temporal Artery Scan 11/28/24 11:58 Pulse Rate 66 11/30/24 05:53 Respiratory Rate 20 11/30/24 05:53 Blood Pressure 109/69 11/30/24 05:53 Blood Pressure Mean 82 11/30/24 05:53 Blood Pressure Left Arm 143/102 11/28/24 15:36 Blood Pressure Location Right Arm 11/30/24 05:53 Blood Pressure Position Supine 11/30/24 05:53 O2 Sat by Pulse Oximetry 97 11/30/24 05:53 Oxygen Delivery Method Room Air 11/30/24 06:00 Height 5 ft 7 in 11/28/24 15:36 Weight 112.5 kg 11/28/24 15:36 Telemetry Heart Rate 66 11/23/24 07:00 Telemetry SPO2 95 11/23/24 07:00 Imaging: EXAM: CT ABDOMEN AND PELVIS WITH CONTRAST HISTORY: Persistent vomiting. TECHNIQUE: CT acquisition of the abdomen and pelvis from the lower thorax through the pelvis following IV contrast administration. 2-D coronal and sagittal reformatted images were obtained from the axial source images. CT Dose Reduction Techniques Performed: Yes. COMPARISON: 03/16/2018 FINDINGS: Visualized portions of the lower chest included in this examination of the abdomen and pelvis show no significant abnormalities. No visible liver mass. No biliary tree dilatation. The gallbladder is present. Gallstones can not be excluded by CT. The pancreas and adrenal glands have a normal appearance. 1.1 cm subcapsular low density of the spleen posterior medially, not visible in the prior study without IV contrast. Might be new. Regardless, of doubtful clinical significance, probably either a cyst or hemangioma. The kidneys enhance symmetrically. No ureteral stones or hydronephrosis. The bowel has a normal appearance. Normal appendix. Tiny fat only containing umbilical hernia, stable. No free air or free fluid. No enlarged lymph nodes are identified. Bone window images show no significant lytic or sclerotic bone lesions. IMPRESSION: 1. No acute findings in the abdomen or pelvis. Lab Results Last 24 Hours: 11/30/24 11/29/24 04:45 16:05 WBC 7.87 RBC 4.46 L Hgb 13.0 L Hct 39.2 L MCV 87.9 MCH 29.1 MCHC 33.2 RDW Coeff of Vanessa 11.9 Plt Count 309 Immature Gran % (Auto) 0.4 Neut % (Auto) 60.4 Lymph % (Auto) 27.1 [place] % (Auto) 9.8 Eos % (Auto) 1.4 Baso % (Auto) 0.9 Neut # (Auto) 4.8 Lymph # (Auto) 2.1 [place] # (Auto) 0.8 Eos # (Auto) 0.1 Baso # (Auto) 0.1 Immature Gran # (Auto) 0.0 Sodium 137.3 138.2 Potassium 3.75 3.90 Chloride 98.4 96.5 L Carbon Dioxide 30.1 H 33.7 H D Anion Gap 12.55 11.90 BUN 22.9 H 29.1 H Creatinine 1.70 H 1.95 H Estimated GFR (MDRD) 50.00 43.00 BUN/Creatinine Ratio 13.47 14.92 Glucose 77.7 87.1 Calcium 9.33 9.48 Total Bilirubin 1.18 AST 22.7 ALT 13.5 Alkaline Phosphatase 72.2 Total Protein 7.10 Albumin 4.12 Globulin 2.98 Albumin/Globulin Ratio 1.38 Discharge Instructions Discharge Planning: Discharge Planning > [address] Rolf Bullock. Discharge Medications: Medications at Discharge (Home Meds & RX) ergocalciferol (vitamin D2) 1,250 mcg (50,000 unit) capsule 1,250 mcg PO WEEKLY 11/22/24 hydrochlorothiazide 12.5 mg capsule 12.5 mg PO DAILY 11/22/24 lisinopril 40 mg tablet 40 mg PO DAILY 11/22/24 metoprolol succinate 25 mg tablet,extended release 24 hr (Toprol XL) 25 mg PO DAILY #30 tabs 11/23/24 ondansetron 4 mg disintegrating tablet 4 mg PO Q6H PRN nausea and vomiting #20 tabs 11/23/24 promethazine 25 mg tablet See Rx Instructions .Route .COMPLEX #7 tabs 11/30/24 Discharge Plan Discharge Discharge Orders: Discharge Patient (ONCE); Ordered 11/30/24 Ordered By: IZABEL GARCIA Activity Restrictions/Additional Instructions: DISCHARGE TO HOME DX: N/V, TATE FOLLOW UP WITH PRIMARY CARE PROVIDER TO REPEAT BLOOD WORK PUSH FLUIDS PHARMACY: [facility] - TAKE FOR NAUSEA, IT WILL LIKELY MAKE YOU DROWSY, NO DRIVING WHILE TAKING IT RETURN WITH WORSENING SYMPTOMS OVER THE COUNTER MEDICATIONS: OMEPRAZOLE 20 MG TWICE A DAY X2 WEEKS PEPCID 20 MG TWICE A DAY X2 WEEKS CONTINUE YOUR OTHER MEDICATIONS LISTED ON MEDICATION LIST Instructions: Promethazine (By mouth), Acute Kidney Injury (DC), Acute Nausea and Vomiting (DC) Care Plan Goals: Problem: Fluid Volume Deficit Goal: Maintain fluid and electrolyte balance Instructions: Monitor and maintain hydration status Follow fluid and dietary restrictions Problem: Nausea Goal #1: Maintain adequate fluid volume Instructions: Monitor for signs and symptoms of dehydration Monitor I/O as needed Goal #2: Relief of nausea Instructions: Medication as ordered Position to prevent aspiration Patient Disposition: HOME SELF-CARE Prescriptions: New promethazine 25 mg tablet See Rx Instructions .ROUTE .COMPLEX Qty: 7 0RF Rx Instructions: TAKE 1/2 TO 1 TAB PO Q8HRS PRN FOR NAUSEA OR VOMITING Continued hydrochlorothiazide 12.5 mg capsule 12.5 mg PO DAILY ergocalciferol (vitamin D2) 1,250 mcg (50,000 unit) capsule 1,250 mcg PO WEEKLY lisinopril 40 mg tablet 40 mg PO DAILY metoprolol succinate [Toprol XL] 25 mg Tablet Extended Release 24 Hr 25 mg PO DAILY Qty: 30 0RF ondansetron 4 mg tablet,disintegrating 4 mg PO Q6H PRN (Reason: nausea and vomiting) Qty: 20 0RF Did you review [place] [employer]GER for ALL controlled substances?: Not Applicable Discussed opioids are addictive and Narcan is available by prescription or from pharmacy.: No Condition: Stable Referrals: DARYL RUSSELL [Primary Care Provider, [facility]] - 12/04/24 2:30 pm
== END 2024-11-30 10:40 | disposition home or self-care (01) ==
LOC: MEDSURG B 11:47 → ED 11:47 → MEDSURG B 15:36
PROVIDERS: ADMIT Hospitalist; ATTEND Physician Assistant